=== PATIENT | female | born 1955 | race Caucasian/White ===

== ENCOUNTER 2016-03-15 12:08 | Outpatient (RCR) | payer BC, OTHER ==
[2016-03-15 12:22] LABS: UPCR RATIO 0.04 (0.00-0.14)
[2016-04-26 10:30] LABS: MEAN CORPUSCULAR HEMOGLOBIN 29.3 PG (26.0-34.0); MEAN CORPUSCULAR HGB CONC 33.1 g/dL (31.0-37.0); MEAN CORPUSCULAR VOLUME 89 FL (80-100); MEAN PLATELET VOLUME 9.5 FL (6.0-9.5); PLATELET COUNT 245 10^3uL (150-450); WHITE BLOOD COUNT 5.25 10^3uL (4.0-11.0)
[2016-04-26 10:47] LABS: ALBUMIN 4.2 g/dL (3.4-5.0); ANION GAP 16.5 MEQ/L (3-15); CALCULATED IONIZED CALCIUM 4.3 mg/dL (3.8-4.6); MAGNESIUM* 1.5 mg/dL (1.6-2.3); PHOSPHORUS 3.4 mg/dL (2.4-4.9); TOTAL PROTEIN 7.2 g/dL (6.4-8.5)
[2016-04-26 11:08] LABS: BAND NEUTROPHILS % 0 % (0-6); EOSINOPHILS % 1 % (0-4); LYMPHOCYTES # 1.1 #; MONOCYTES # 0.2 #; MONOCYTES % 4 % (3-11); RBC MORPH NORMAL (NORMAL); SEGMENTED NEUTROPHILS % 74 % (51-67); TOTAL CELLS COUNTED 100
== END 2016-06-13 | disposition home or self-care (01) ==
LOC: LAB 12:08 → EDSTATUS 12:08
PROVIDERS: ATTEND Internal Medicine Hematology & Oncology
DX: C54.8 Malignant neoplasm of overlapping sites of corpus uteri (principal)
CPT/HCPCS: 36415; 80053; 82570; 83615; 83735; 84100; 84156; 85007; 85027

== ENCOUNTER → 2016-04-28 | Outpatient (CLI) | payer BC, OTHER ==
[~2016-04-28] MED LIST: BENZ28CR2 TP; HYDR-2013 PO; IBP200T PO; NAPR220T76 PO
--- NOTE | 2016-04-28 09:34 | Diagnostic Imaging Report ---
PROCEDURE: CT chest pelvis with and abdomen with and without contrast. TECHNIQUE: Multiple contiguous axial images were obtained through the chest, abdomen and pelvis after uneventful bolus administration of intravenous contrast. Precontrast acquisitions were acquired through the abdomen. INDICATION: Uterine cancer surveillance. COMPARISON: 11/12/2015 and 05/28/2015. CT CHEST FINDINGS: The flat 9 mm nodule along the mid right hemidiaphragm is unchanged. There is a new triangular subpleural 5 mm nodule in the posterior aspect of the superior segment of the left lower lobe (image 21, series 5) which has the configuration which would favor atelectasis. No additional pulmonary nodule, mass or consolidation. No endoluminal lesion within the trachea or central bronchi. No pleural effusion, pneumothorax or pleural nodularity. The visualized thyroid demonstrates stable subcentimeter hypodense nodule in the inferior right thyroid lobe. No supraclavicular or axillary lymphadenopathy. Stable left subclavian Port-A-Cath. No intrathoracic lymphadenopathy. No osseous lesion in the thorax which would suggest skeletal metastases. IMPRESSION: 1. New subpleural triangular nodular opacity in the superior segment of the left lower lobe favors subsegmental atelectasis. Attention on followup imaging is recommended. 2. Flat 9 mm nodule along the right hemidiaphragm is unchanged and likely represents focal atelectasis or scar. 3. No intrathoracic lymphadenopathy. CT ABDOMEN AND PELVIS FINDINGS: Precontrast imaging of the abdomen demonstrates no renal or ureteral calculi. Postcontrast imaging demonstrates no peritoneal nodularity or free air. There is trace free pelvic fluid which is similar to prior examination. Status post hysterectomy. No soft tissue nodularity in the surgical bed to suggest local recurrence. No abdominal or pelvic lymphadenopathy. Subcentimeter left external iliac lymph node is unchanged. Subcentimeter upper periaortic lymph nodes are also unchanged. Liver, gallbladder and spleen enhance normally without evidence of metastatic disease. The adrenals and kidneys are stable. There is a subcentimeter hypodensity in the interpolar region of the right kidney which favors a simple cyst. No bowel obstruction. Appendix is not seen and may be surgically absent. Normal caliber abdominal aorta with scattered atherosclerotic disease. No concerning osseous lesions in the abdomen or pelvis to suggest skeletal metastases. Degenerative facet disease in the lower lumbar spine. IMPRESSION: 1. Stable abdomen and pelvis without evidence of local recurrence. 2. Left external iliac chain borderline enlarged lymph node is stable from most recent exam but has decreased in size since examination of 03/20/2014. Dictated by: Dictated on workstation # [id number]
== END ==
LOC: RAD 07:58
PROVIDERS: ATTEND Internal Medicine Hematology & Oncology
DX: C54.8 Malignant neoplasm of overlapping sites of corpus uteri (principal)
CPT/HCPCS: 71260; 74178; Q9967

== ENCOUNTER → 2016-06-23 | Outpatient (CLI) | payer OTHER | LOC: RAD 12:29 | PROVIDERS: ATTEND Internal Medicine Hematology & Oncology | DX: C54.8 Malignant neoplasm of overlapping sites of corpus uteri (principal) | CPT/HCPCS: 74178; Q9967 ==

== ENCOUNTER → 2016-06-23 | Outpatient (REF) | payer OTHER ==
[2016-06-23 11:52] LABS: ALBUMIN 4.1 g/dL (3.4-5.0); CALCULATED IONIZED CALCIUM 3.8 mg/dL (3.8-4.6); TOTAL PROTEIN 7.9 g/dL (6.4-8.5)
== END ==
LOC: LAB 11:14
PROVIDERS: ATTEND Internal Medicine Hematology & Oncology
DX: C54.8 Malignant neoplasm of overlapping sites of corpus uteri (principal)
CPT/HCPCS: 80053

== ENCOUNTER → 2016-07-05 | Outpatient (CLI) | payer OTHER | LOC: LAB 13:42 | PROVIDERS: ATTEND Internal Medicine Hematology & Oncology | DX: C54.8 Malignant neoplasm of overlapping sites of corpus uteri (principal) | CPT/HCPCS: 82570; 84156 ==

== ENCOUNTER → 2016-07-27 | Outpatient (CLI) | payer OTHER ==
[2016-07-27 16:05] LABS: MEAN CORPUSCULAR HEMOGLOBIN 29.3 PG (26.0-34.0); MEAN CORPUSCULAR HGB CONC 32.8 g/dL (31.0-37.0); MEAN CORPUSCULAR VOLUME 89 FL (80-100); MEAN PLATELET VOLUME 9.5 FL (6.0-9.5); PLATELET COUNT 253 10^3uL (150-450); WHITE BLOOD COUNT 5.34 10^3uL (4.0-11.0)
[2016-07-27 16:13] LABS: BAND NEUTROPHILS % 0 % (0-6); EOSINOPHILS % 3 % (0-4); LYMPHOCYTES # 1.4 #; MONOCYTES # 0.3 #; MONOCYTES % 5 % (3-11); SEGMENTED NEUTROPHILS % 66 % (51-67); TOTAL CELLS COUNTED 100
[2016-07-27 16:14] LABS: RBC MORPH NORMAL (NORMAL)
[2016-07-27 16:18] LABS: ALBUMIN 4.2 g/dL (3.4-5.0); ANION GAP 17.4 MEQ/L (3-15); CALCULATED IONIZED CALCIUM 3.8 mg/dL (3.8-4.6); MAGNESIUM* 1.8 mg/dL (1.6-2.3); PHOSPHORUS 2.9 mg/dL (2.4-4.9); TOTAL PROTEIN 7.9 g/dL (6.4-8.5)
== END ==
LOC: LAB 15:51
PROVIDERS: ATTEND Internal Medicine Hematology & Oncology
DX: C54.8 Malignant neoplasm of overlapping sites of corpus uteri (principal)
CPT/HCPCS: 36415; 80053; 83615; 83735; 84100; 85007; 85027

== ENCOUNTER 2016-07-30 10:55 | Emergency (ER) | payer OTHER ==
[~2016-07-30] VITALS: Ht 160 cm; Wt 79.4 kg
--- OUTSIDE RECORDS SUMMARY | 2016-07-30 11:01 | XMS REPORT | Continuity of Care Document ---
Author Author [facility] Organization [facility] Address Unknown Phone Unavailable Allergies Active Description Code Type Severity Reaction Onset Reported/Identified Relationship to Patient Clinical Status Yes No Allergy Information Availab Drug Allergy 07/06/2012 Yes No Allergy Information Availab Drug Allergy N/A N/A 07/06/2012 Yes adhesive [id number] Drug Allergy Unknown N/A 04/18/2014 Yes TAPE TAPE Unknown N/A 04/18/2014 Medications Problems Date Dx Coded Attending Type Code Diagnosis Diagnosed By 11/27/2011 Ot 625.9 FEM GENITAL SYMPTOMS NOS 03/21/2012 Ot 844.9 SPRAIN OF KNEE LEG NOS 03/21/2012 Ot E928.9 ACCIDENT NOS 07/06/2012 Christophe Max MD Final 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 07/06/2012 Christophe Max MD Final 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 07/06/2012 Christophe Max MD Final 278.00 OBESITY NOS 07/06/2012 Christophe Max MD Final V10.3 HX BREAST CA 07/06/2012 Christophe Max MD Final V85.35 BMI 35.0-35.9 ADULT 09/07/2012 Ot 182.0 MALIG WENDY CORPUS UTERI 09/07/2012 Ot V10.3 HX OF BREAST MALIGNANCY 11/27/2012 PRISCILLA DAO MD Ot 285.9 ANEMIA NOS 01/09/2013 PRISCILLA DAO MD Ot 285.9 ANEMIA NOS 02/06/2013 Ot 182.0 MALIG WENDY CORPUS UTERI 05/09/2013 Lance Ulloa MD Final 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 05/09/2013 Lance Ulloa MD Final V10.3 HX BREAST CA 05/09/2013 Lance Ulloa MD Final V15.3 HX IRRADIATION 05/09/2013 Lance Ulloa MD Final V87.41 HX ANTINEOPLASTIC CHEMO 07/09/2013 PAGE MD, PRISCILLA J Ot 182.0 MALIG WENDY CORPUS UTERI 03/18/2014 Ot V10.3 03/18/2014 Ot V10.42 03/18/2014 Ot 182.0 03/18/2014 Ot 182.0 03/18/2014 Ot 182.0 03/18/2014 Ot 788.1 03/18/2014 Ot 182.0 03/18/2014 Ot 182.0 03/18/2014 Ot 182.0 03/18/2014 Ot 182.0 03/18/2014 Ot 182.0 03/18/2014 PRISCILLA DAO MD Ot 786.50 03/18/2014 LAKSHMI PINO Ot 179 03/18/2014 PRISCILLA DAO MD Ot 182.0 03/18/2014 PRISCILLA DAO MD Ot 785.6 03/18/2014 PRISCILLA DAO MD Ot 179 03/18/2014 PRISCILLA DAO MD Ot 182.0 03/18/2014 PRISCILLA DAO MD Ot 182.0 03/18/2014 PRISCILLA DAO MD Ot 182.0 03/18/2014 PRISCILLA DAO MD Ot 182.0 03/18/2014 PRISCILLA DAO MD Ot 182.0 03/18/2014 JAISON RIVERA MD Ot 288.00 NEUTROPENIA, UNSPECIFIED 03/18/2014 JAISON RIVERA MD Ot 780.79 OTH MALAISE FATIGUE 03/18/2014 JAISON RIVERA MD Ot V58.69 OTH MED,LT,CURRENT USE 03/19/2014 Ot V10.3 03/19/2014 Ot V10.42 03/19/2014 Ot 182.0 03/19/2014 Ot 182.0 03/19/2014 Ot 182.0 03/19/2014 Ot 788.1 03/19/2014 Ot 182.0 03/19/2014 Ot 182.0 03/19/2014 Ot 182.0 03/19/2014 Ot 182.0 03/19/2014 Ot 182.0 03/19/2014 PRISCILLA DAO MD Ot 786.50 03/19/2014 LAKSHMI PINO Ot 179 03/19/2014 PRISCILLA DAO MD Ot 182.0 03/19/2014 PRISCILLA DAO MD Ot 785.6 03/19/2014 PRISCILLA DAO MD Ot 179 03/19/2014 PRISCILLA DAO MD Ot 182.0 03/19/2014 PRISCILLA DAO MD Ot 182.0 03/19/2014 PRISCILLA DAO MD Ot 182.0 03/19/2014 PRISCILLA DAO MD J Ot 182.0 03/19/2014 PRISCILLA DAO MD J Ot 182.0 03/25/2014 PRISCILLA DAO MD Ot 182.0 MALIG WENDY CORPUS UTERI 03/26/2014 Ot V10.3 03/26/2014 Ot V10.42 03/26/2014 Ot 182.0 03/26/2014 Ot 182.0 03/26/2014 Ot 182.0 03/26/2014 Ot 788.1 03/26/2014 Ot 182.0 03/26/2014 Ot 182.0 03/26/2014 Ot 182.0 03/26/2014 Ot 182.0 03/26/2014 Ot 182.0 03/26/2014 PRISCILLA DAO MD Ot 786.50 03/26/2014 LAKSHMI PINO Ot 179 03/26/2014 PRISCILLA DAO MD Ot 182.0 03/26/2014 PRISCILLA DAO MD Ot 785.6 03/26/2014 PRISCILLA DAO MD Ot 179 03/26/2014 PRISCILLA DAO MD Ot 182.0 03/26/2014 PRISCILLA DAO MD Ot 182.0 03/26/2014 PRISCILLA DAO MD Ot 182.0 03/26/2014 PRISCILLA DAO MD Ot 182.0 03/26/2014 PRISCILLA DAO MD Ot 182.0 04/01/2014 PRISCILLA DAO MD Ot 182.0 04/05/2014 PRISCILLA DAO MD Ot 182.0 04/05/2014 Ot V10.3 04/05/2014 Ot V10.42 04/05/2014 Ot 182.0 04/05/2014 Ot 182.0 04/05/2014 Ot 182.0 04/05/2014 Ot 788.1 04/05/2014 Ot 182.0 04/05/2014 Ot 182.0 04/05/2014 Ot 182.0 04/05/2014 Ot 182.0 04/05/2014 Ot 182.0 04/05/2014 PRISCILLA DAO MD Ot 786.50 04/05/2014 LAKSHMI PINO Ot 179 04/05/2014 PRISCILLA DAO MD Ot 182.0 04/05/2014 PRISCILLA DAO MD Ot 785.6 04/05/2014 PRISCILLA DAO MD Ot 179 04/05/2014 PRISCILLA DAO MD Ot 182.0 04/05/2014 PRISCILLA DAO MD Ot 182.0 04/05/2014 PRISCILLA DAO MD J Ot 182.0 04/05/2014 PRISCILLA DAO MD J Ot 182.0 04/05/2014 PRISCILLA DAO MD J Ot 182.0 04/05/2014 PRISCILLA DAO MD Ot 182.0 04/15/2014 PRISCILLA DAO MD J Ot 182.0 04/15/2014 PRISCILLA DAO MD Ot 182.0 04/16/2014 Ot V10.3 04/16/2014 Ot V10.42 04/16/2014 Ot 182.0 04/16/2014 Ot 182.0 04/16/2014 Ot 182.0 04/16/2014 Ot 788.1 04/16/2014 Ot 182.0 04/16/2014 Ot 182.0 04/16/2014 Ot 182.0 04/16/2014 Ot 182.0 04/16/2014 Ot 182.0 04/16/2014 PRISCILLA DAO MD Ot 786.50 04/16/2014 LAKSHMI PINO Ot 179 04/16/2014 PRISCILLA DAO MD Ot 182.0 04/16/2014 PRISCILLA DAO MD Ot 785.6 04/16/2014 PRISCILLA DAO MD Ot 179 04/16/2014 PRISCILLA DAO MD Ot 182.0 04/16/2014 PRISCILLA DAO MD Ot 182.0 04/16/2014 PRISCILLA DAO MD Ot 182.0 04/16/2014 PRISCILLA DAO MD Ot 182.0 04/16/2014 PRISCILLA DAO MD Ot 182.0 04/16/2014 PRISCILLA DAO MD Ot 182.0 04/19/2014 PRISCILLA DAO MD Ot 179 MALIG NEOPL UTERUS NOS 04/19/2014 PRISCILLA DAO MD Ot 285.9 ANEMIA NOS 04/22/2014 PRISCILLA DAO MD Ot 182.0 04/29/2014 PRISCILLA DAO MD Ot 182.0 06/03/2014 PRISCILLA DAO MD Ot 182.0 06/03/2014 PRISCILLA DAO MD Ot 593.9 06/03/2014 PRISCILLA DAO MD Ot 785.6 06/11/2014 PRISCILLA DAO MD Ot 182.0 06/11/2014 PRISCILLA DAO MD Ot 593.9 06/11/2014 PRISCILLA DAO MD Ot 785.6 06/30/2014 PRISCILLA DAO MD Ot 182.0 MALIG WENDY CORPUS UTERI 07/25/2014 PRISCILLA DAO MD Ot 182.0 09/02/2014 PRISCILLA DAO MD Ot 182.0 09/02/2014 PRISCILLA DAO MD Ot 182.0 09/13/2014 PRISCILLA DAO MD Ot 182.0 09/13/2014 PRISCILLA DAO MD Ot 182.0 10/06/2014 PRISCILLA DAO MD Ot 179 MALIG NEOPL UTERUS NOS 10/06/2014 PRISCILLA DAO MD Ot 182.0 MALIG WENDY CORPUS UTERI 10/21/2014 PRISCILLA DAO MD Ot 182.0 10/23/2014 PRISCILLA DAO MD Ot 182.0 10/23/2014 PRISCILLA DAO MD Ot 179 11/05/2014 PRISCILLA DAO MD Ot 179 11/20/2014 PRISCILLA DAO MD Ot 182.0 01/19/2015 PRISCILLA DOA MD Ot 182.0 MALIG WENDY CORPUS UTERI 04/07/2015 Ot V10.3 04/07/2015 Ot V10.42 04/07/2015 Ot 182.0 04/07/2015 Ot 182.0 04/07/2015 Ot 182.0 04/07/2015 Ot 788.1 04/07/2015 Ot 182.0 04/07/2015 Ot 182.0 04/07/2015 Ot 182.0 04/07/2015 Ot 182.0 04/07/2015 Ot 182.0 04/07/2015 PRISCILLA DAO MD Ot 786.50 04/07/2015 LAKSHMI PINO K Ot 179 04/07/2015 PRISCILLA DAO MD Ot 182.0 04/07/2015 PRISCILLA DAO MD Ot 785.6 04/07/2015 PRISCILLA DAO MD Ot 179 04/07/2015 PRISCILLA DAO MD Ot 182.0 04/07/2015 PRISCILLA DAO MD Ot 182.0 04/07/2015 PRISCILLA DAO MD Ot 182.0 04/07/2015 PRISCILLA DAO MD Ot 182.0 04/07/2015 FELIBERTO GRIER, PRISCILLA J Ot 182.0 04/07/2015 PRISCILLA DAO MD Ot 182.0 04/07/2015 PRISCILLA DAO MD Ot 593.9 04/07/2015 PRISCILLA DAO MD Ot 785.6 04/07/2015 PRISCILLA DAO MD Ot 182.0 04/07/2015 PRISCILLA DAO MD Ot 179 04/07/2015 PRISCILLA DAO MD Ot C56.9 04/07/2015 PRISCILLA DAO MD Ot 182.0 04/07/2015 Ot C55 04/07/2015 PRISCILLA DAO MD Ot R06.09 04/07/2015 PRISCILLA DAO MD Ot C55 04/07/2015 PRISCILLA DAO MD Ot R06.09 04/23/2015 Ot V10.3 04/23/2015 Ot V10.42 04/23/2015 Ot 182.0 04/23/2015 Ot 182.0 04/23/2015 Ot 182.0 04/23/2015 Ot 788.1 04/23/2015 Ot 182.0 04/23/2015 Ot 182.0 04/23/2015 Ot 182.0 04/23/2015 Ot 182.0 04/23/2015 Ot 182.0 04/23/2015 PRISCILLA DAO MD Ot 786.50 04/23/2015 LAKSHMI PINO Ot 179 04/23/2015 PRISCILLA DAO MD Ot 182.0 04/23/2015 PRISCILLA DAO MD Ot 785.6 04/23/2015 PRISCILLA DAO MD Ot 179 04/23/2015 PRISCILLA DAO MD Ot 182.0 04/23/2015 PRISCILLA DAO MD Ot 182.0 04/23/2015 PRISCILLA DAO MD Ot 182.0 04/23/2015 PRISCILLA DAO MD Ot 182.0 04/23/2015 PRISCILLA DAO MD Ot 182.0 04/23/2015 PRISCILLA DAO MD Ot 182.0 04/23/2015 PRISCILLA DAO MD Ot 593.9 04/23/2015 PRISCILLA DAO MD Ot 785.6 04/23/2015 PRISCILLA DAO MD Ot 182.0 04/23/2015 FELIBERTO GRIER, PRISCILLA Carranza Ot 179 04/23/2015 PRISCILLA DAO MD J Ot C56.9 04/23/2015 PRISCILLA DAO MD Ot 182.0 04/23/2015 Ot C55 04/23/2015 PRISCILLA DAO MD J Ot R06.09 04/23/2015 PRISCILLA DAO MD Ot C55 04/23/2015 PRISCILLA DAO MD J Ot R06.09 04/23/2015 PRISCILLA DAO MD J Ot C55 04/23/2015 PRISCILLA DAO MD Ot R06.09 04/23/2015 Ot V10.3 04/23/2015 Ot V10.42 04/23/2015 Ot 182.0 04/23/2015 Ot 182.0 04/23/2015 Ot 182.0 04/23/2015 Ot 788.1 04/23/2015 Ot 182.0 04/23/2015 Ot 182.0 04/23/2015 Ot 182.0 04/23/2015 Ot 182.0 04/23/2015 Ot 182.0 04/23/2015 PRISCILLA DAO MD Ot 786.50 04/23/2015 LAKSHMI PINO K Ot 179 04/23/2015 PRISCILLA DAO MD Ot 182.0 04/23/2015 PRISCILLA DAO MD Ot 785.6 04/23/2015 PRISCILLA DAO MD Ot 179 04/23/2015 PRISCILLA DAO MD Ot 182.0 04/23/2015 PRISCILLA DAO MD Ot 182.0 04/23/2015 PRISCILLA DAO MD Ot 182.0 04/23/2015 PRISCILLA DAO MD Ot 182.0 04/23/2015 PRISCILLA DAO MD Ot 182.0 04/23/2015 PRISCILLA DAO MD Ot 182.0 04/23/2015 PRISCILLA DAO MD Ot 593.9 04/23/2015 PRISCILLA DAO MD Ot 785.6 04/23/2015 PRISCILLA DAO MD Ot 182.0 04/23/2015 PRISCILLA DAO MD Ot 179 04/23/2015 PRISCILLA DAO MD Ot C56.9 04/23/2015 FELIBERTO GRIER, PRISCILLA Carranza Ot 182.0 04/23/2015 Ot C55 04/23/2015 FELIBERTO GRIER, PRISCILLA Carranza Ot R06.09 04/23/2015 FELIBERTO GRIER, PRISCILLA Carranza Ot C55 04/23/2015 PRISCILLA DAO MD Ot R06.09 04/23/2015 FELIBERTO GRIER, PRISCILLA Carranza Ot C55 04/23/2015 PRISCILLA DAO MD Ot R06.09 05/07/2015 Ot V10.3 05/07/2015 Ot V10.42 05/07/2015 Ot 182.0 05/07/2015 Ot 182.0 05/07/2015 Ot 182.0 05/07/2015 Ot 788.1 05/07/2015 Ot 182.0 05/07/2015 Ot 182.0 05/07/2015 Ot 182.0 05/07/2015 Ot 182.0 05/07/2015 Ot 182.0 05/07/2015 FELIBERTO GRIER, PRISCILLA Carranza Ot 786.50 05/07/2015 LAKSHMI PINO Ot 179 05/07/2015 FELIBERTO GRIER, PRISCILLA Carranza Ot 182.0 05/07/2015 FELIBERTO GRIER, PRISCILLA Carranza Ot 785.6 05/07/2015 FELIBERTO GRIER, PRISCILLA Carranza Ot 179 05/07/2015 FELIBERTO GRIER, PRISCILLA Carranza Ot 182.0 05/07/2015 FELIBERTO GRIER, PRISCILLA Carranza Ot 182.0 05/07/2015 FELIBERTO GRIER, PRISCILLA Carrazna Ot 182.0 05/07/2015 FELIBERTO GRIER, PRISCILLA Carranza Ot 182.0 05/07/2015 FELIBERTO GRIER, PRISCILLA Carranza Ot 182.0 05/07/2015 FELIBERTO GRIER, PRISCILLA Carranza Ot 182.0 05/07/2015 PRISCILLA DAO MD Ot 593.9 05/07/2015 FELIBERTO GRIER, PRISCILLA Carranza Ot 785.6 05/07/2015 FELIBERTO GRIER, PRISCILLA Carranza Ot 182.0 05/07/2015 FELIBERTO GRIER, PRISCILLA Carranza Ot 179 05/07/2015 FELIBERTO GRIER, PRISCILLA Carranza Ot C56.9 05/07/2015 PRISCILLA DAO MD Ot 182.0 05/07/2015 Ot C55 05/07/2015 PRISCILLA DAO MD Ot R06.09 05/07/2015 PRISCILLA DAO MD Ot C55 05/07/2015 FELIBERTO GRIER, PRISCILLA Carranza Ot R06.09 05/07/2015 FELIBERTO GRIER, PRISCILLA Carranza Ot C55 05/07/2015 FELIBERTO GRIER, PRISCILLA Carranza Ot R06.09 05/08/2015 FELIBERTO GRIER, PRISCILLA Carranza Ot C56.9 05/08/2015 Ot C55 05/08/2015 PRISCILLA DAO MD Ot R06.09 05/08/2015 PRISCILLA DAO MD Ot C55 05/08/2015 PRISCILLA DAO MD J Ot R06.09 05/08/2015 Ot V10.3 05/08/2015 Ot V10.42 05/08/2015 Ot 182.0 05/08/2015 Ot 182.0 05/08/2015 Ot 182.0 05/08/2015 Ot 788.1 05/08/2015 Ot 182.0 05/08/2015 Ot 182.0 05/08/2015 Ot 182.0 05/08/2015 Ot 182.0 05/08/2015 Ot 182.0 05/08/2015 PRISCILLA DAO MD Ot 786.50 05/08/2015 MARTIN LARA, LAKSHMI K Ot 179 05/08/2015 PRISCILLA DAO MD Ot 182.0 05/08/2015 FELIBERTO GRIER, PRISCILLA Carranza Ot 785.6 05/08/2015 FELIBERTO GRIER, PRISCILLA Carranza Ot 179 05/08/2015 FELIBERTO GRIER, PRISCILLA Carranza Ot 182.0 05/08/2015 PRISCILLA DAO MD Ot 182.0 05/08/2015 FELIBERTO GRIER, PRISCILLA Carranza Ot 182.0 05/08/2015 PRISCILLA DAO MD Ot 182.0 05/08/2015 PRISCILLA DAO MD Ot 182.0 05/08/2015 PRISCILLA DAO MD Ot 182.0 05/08/2015 PRISCILLA DAO MD Ot 593.9 05/08/2015 PRISCILLA DAO MD Ot 785.6 05/08/2015 PRISCILLA DAO MD Ot 182.0 05/08/2015 FELIBERTO GRIER, PRISCILLA Carranza Ot 179 05/08/2015 PRISCILLA DAO MD Ot C56.9 05/08/2015 PRISCILLA DAO MD Ot 182.0 05/08/2015 Ot C55 05/08/2015 PRISCILLA DAO MD Ot R06.09 05/08/2015 PRISCILLA DAO MD Ot C55 05/08/2015 FELIBERTO GRIER, PRISCILLA J Ot R06.09 05/08/2015 FELIBERTO GRIER, PRISCILLA Carranza Ot C55 05/08/2015 FELIBERTO GRIER, PRISCILLA J Ot R06.09 05/20/2015 FELIBERTO GRIER, PRISCILLA J Ot C56.9 05/20/2015 Ot C55 05/20/2015 FELIBERTO GRIER, PRISCILLA J Ot R06.09 05/20/2015 FELIBERTO GRIER, PRISCILLA Carranza Ot C55 05/20/2015 FELIBERTO GRIER, PRISCILLA Carranza Ot R06.09 06/18/2015 FELIBERTO GRIER, PRISCILLA J Ot C54.8 07/02/2015 FELIBERTO GRIER, PRISCILLA J Ot C54.8 07/02/2015 FELIBERTO GRIER, PRISCILLA J Ot C54.8 07/02/2015 FELIBERTO GRIER, PRISCILLA Carranza Ot C54.8 07/02/2015 FELIBERTO GRIER, PRISCILLA Carranza Ot C54.8 07/02/2015 FELIBERTO GRIER, PRISCILLA Carranza Ot C55 07/02/2015 FELIBERTO GRIER, PRISCILLA Carranza Ot R06.09 07/02/2015 FELIBERTO GRIER, PRISCILLA Carranza Ot C55 07/02/2015 FELIBERTO GRIER, PRISCILLA Carranza Ot R06.09 07/09/2015 Ot V10.3 07/09/2015 Ot V10.42 07/09/2015 Ot 182.0 07/09/2015 Ot 182.0 07/09/2015 Ot 182.0 07/09/2015 Ot 788.1 07/09/2015 Ot 182.0 07/09/2015 Ot 182.0 07/09/2015 Ot 182.0 07/09/2015 Ot 182.0 07/09/2015 Ot 182.0 07/09/2015 PRISCILLA DAO MD Ot 786.50 07/09/2015 LAKSHMI PINO Ot 179 07/09/2015 FELIBERTO GRIER, PRISCILLA Carranza Ot 182.0 07/09/2015 PRISCILLA DAO MD Ot 785.6 07/09/2015 FELIBERTO GRIER, PRISCILLA Carranza Ot 179 07/09/2015 PRISCILLA DAO MD Ot 182.0 07/09/2015 PRISCILLA DAO MD Ot 182.0 07/09/2015 PRISCILLA DAO MD Ot 182.0 07/09/2015 PRISCILLA DAO MD Ot 182.0 07/09/2015 PRISCILLA DAO MD J Ot 182.0 07/09/2015 PRISCILLA DAO MD J Ot 182.0 07/09/2015 PRISCILLA DAO MD Ot 593.9 07/09/2015 PRISCILLA DAO MD Ot 785.6 07/09/2015 PRISCILLA DAO MD J Ot 182.0 07/09/2015 PRISCILLA DAO MD Ot 179 07/09/2015 PRISCILLA DAO MD Ot C56.9 07/09/2015 PRISCILLA DAO MD J Ot 182.0 07/09/2015 Ot C55 07/09/2015 PRISCILLA DAO MD J Ot R06.09 07/09/2015 PRISCILLA DAO MD Ot C55 07/09/2015 PRISCILLA DAO MD J Ot R06.09 07/09/2015 PRISCILLA DAO MD Ot C55 07/09/2015 PRISCILLA DAO MD Ot R06.09 07/09/2015 PRISCILLA DAO MD Ot C54.8 07/09/2015 PRISCILLA DAO MD Ot C54.8 07/09/2015 PRISCILLA DAO MD Ot C54.8 07/09/2015 PRISCILLA DAO MD Ot C54.8 07/14/2015 PRISCILLA DAO MD Ot C55 07/14/2015 PRISCILLA DAO MD Ot R06.09 07/16/2015 PRISCILLA DAO MD Ot C54.8 07/16/2015 PRISCILLA DAO MD Ot C54.8 07/17/2015 PRISCILLA DAO MD Ot C54.8 07/22/2015 PRISCILLA DAO MD Ot C54.8 09/11/2015 PRISCILLA DAO MD Ot 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 09/30/2015 PRISCILLA DAO MD Ot 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 09/30/2015 PRISCILLA DAO MD Ot J06.9 ACUTE UPPER RESPIRATORY INFECTION, UNSPE 10/08/2015 PRISCILLA DAO MD Ot 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 11/12/2015 PRISCILLA DAO MD Ot 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 11/12/2015 PRISCILLA DAO MD Ot 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 11/12/2015 PRISCILLA DAO MD Ot J06.9 ACUTE UPPER RESPIRATORY INFECTION, UNSPE 11/12/2015 PRISCILLA DAO MD Ot 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 11/12/2015 PRISCILLA DAO MD Ot 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 11/12/2015 PRISCILLA DAO MD Ot J06.9 ACUTE UPPER RESPIRATORY INFECTION, UNSPE 11/12/2015 PRISCILLA DAO MD Ot 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 11/13/2015 PRISCILLA DAO MD Ot 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 11/13/2015 PRISCILLA DAO MD Ot 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 11/17/2015 PRISCILLA DAO MD Ot 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 11/19/2015 PRISCILLA DAO MD Ot 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 11/19/2015 PRISCILLA DAO MD Ot 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 11/19/2015 PRISCILLA DAO MD Ot 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 11/19/2015 PRISCILLA DAO MD Ot 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 11/19/2015 PRICSILLA DAO MD Ot 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 11/19/2015 PRISCILLA DAO MD Ot J06.9 ACUTE UPPER RESPIRATORY INFECTION, UNSPE 11/19/2015 PRISCILLA DAO MD Ot 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 11/25/2015 PRISCILLA DAO MD Ot 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 11/25/2015 PRISCILLA DAO MD Ot J06.9 ACUTE UPPER RESPIRATORY INFECTION, UNSPE 11/25/2015 PRISCILLA DAO MD Ot 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 12/01/2015 Ot V10.3 HX OF BREAST MALIGNANCY 12/01/2015 Ot V10.42 HX-UTERUS MALIGNANCY NEC 12/01/2015 Ot 182.0 MALIG WENDY CORPUS UTERI 12/01/2015 Ot 182.0 MALIG WENDY CORPUS UTERI 12/01/2015 Ot 182.0 MALIG WENDY CORPUS UTERI 12/01/2015 Ot 788.1 DYSURIA 12/01/2015 Ot 182.0 MALIG WENDY CORPUS UTERI 12/01/2015 Ot 182.0 MALIG WENDY CORPUS UTERI 12/01/2015 Ot 182.0 MALIG WENDY CORPUS UTERI 12/01/2015 Ot 182.0 MALIG WENDY CORPUS UTERI 12/01/2015 Ot 182.0 MALIG WENDY CORPUS UTERI 12/01/2015 PRISCILLA DAO MD Ot 786.50 CHEST PAIN NOS 12/01/2015 MARTIN LARA, LAKSHMI K Ot 179 MALIG NEOPL UTERUS NOS 12/01/2015 PRISCILLA DAO MD Ot 182.0 MALIG WENDY CORPUS UTERI 12/01/2015 PRISCILLA DAO MD Ot 785.6 ENLARGEMENT LYMPH NODES 12/01/2015 PRISCILLA DAO MD Ot 179 MALIG NEOPL UTERUS NOS 12/01/2015 PRISCILLA DAO MD Ot 182.0 MALIG WENDY CORPUS UTERI 12/01/2015 PRISCILLA DAO MD Ot 182.0 MALIG WENDY CORPUS UTERI 12/01/2015 PRISCILLA DAO MD Ot 182.0 MALIG WENDY CORPUS UTERI 12/01/2015 PRISCILLA DAO MD Ot 182.0 MALIG WENDY CORPUS UTERI 12/01/2015 PRISCILLA DAO MD Ot 182.0 MALIG WENDY CORPUS UTERI 12/01/2015 PRISCILLA DAO MD Ot 182.0 MALIG WENDY CORPUS UTERI 12/01/2015 PRISCILLA DAO MD Ot 593.9 RENAL URETERAL DIS NOS 12/01/2015 PRISCILLA DAO MD Ot 785.6 ENLARGEMENT LYMPH NODES 12/01/2015 PRISCILLA DAO MD Ot 182.0 MALIG WENDY CORPUS UTERI 12/01/2015 PRISCILLA DAO MD Ot 179 MALIG NEOPL UTERUS NOS 12/01/2015 PRISCILLA DAO MD Ot 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 12/01/2015 PRISCILLA DAO MD Ot 182.0 12/01/2015 Ot C55 MALIGNANT NEOPLASM OF UTERUS, PART UNSPE 12/01/2015 PRISCILLA DAO MD Ot R06.09 OTHER FORMS OF DYSPNEA 12/01/2015 PRISCILLA DAO MD, Ot C55 MALIGNANT NEOPLASM OF UTERUS, PART UNSPE 12/01/2015 PRISCILLA DAO MD Ot R06.09 OTHER FORMS OF DYSPNEA 12/01/2015 PRISCILLA DAO MD Ot C55 MALIGNANT NEOPLASM OF UTERUS, PART UNSPE 12/01/2015 PRISCILLA DAO MD Ot R06.09 OTHER FORMS OF DYSPNEA 12/01/2015 PAGE MD, PRISCILLA J Ot 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 12/01/2015 PRISCILLA DOA MD Ot 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 12/01/2015 PRISCILLA DAO MD Ot 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 12/01/2015 PRISCILLA DAO MD Ot 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 12/01/2015 PRISCILLA DAO MD Ot 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 12/01/2015 PRISCILLA DAO MD Ot J06.9 ACUTE UPPER RESPIRATORY INFECTION, UNSPE 12/01/2015 PRISCILLA DAO MD Ot 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 12/01/2015 PRISCILLA DAO MD Ot 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 12/01/2015 PRISCILLA DAO MD Ot 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 12/01/2015 PRISCILLA DAO MD Ot 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 12/01/2015 PRISCILLA DAO MD Ot J06.9 ACUTE UPPER RESPIRATORY INFECTION, UNSPE 12/01/2015 PRISCILLA DAO MD Ot 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 12/01/2015 PRISCILLA DAO MD Ot 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 12/01/2015 PRISCILLA DAO MD Ot 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 12/05/2015 PRISCILLA DAO MD Ot 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 12/11/2015 PRISCILLA DAO MD Ot 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 01/14/2016 KELLI GRIER, REY M Ot R30.0 DYSURIA 01/21/2016 REY PEREIRA MD M Ot R30.0 DYSURIA 01/24/2016 REY PEREIRA MD M Ot R30.0 DYSURIA 02/05/2016 PRISCILLA DAO MD Ot 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 02/05/2016 PRISCILLA DAO MD Ot 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 02/11/2016 PRISCILLA DAO MD Ot 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 02/25/2016 PRISCILLA DAO MD Ot 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 03/19/2016 PRISCILLA DAO MD Ot 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 03/19/2016 PRISCILLA DAO MD Ot 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 03/19/2016 PRISCILLA DAO MD Ot 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 04/01/2016 KELLI GRIER, REY Justin Ot R30.0 DYSURIA 04/09/2016 PRISCILLA DAO MD Ot 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 04/11/2016 PRISCILLA DAO MD Ot 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 04/14/2016 PRISCILLA DAO MD Ot 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 04/16/2016 PRISCILLA DAO MD Ot 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 04/16/2016 PRISCILLA DAO MD Ot 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 04/16/2016 PRISCILLA DAO MD Ot J06.9 ACUTE UPPER RESPIRATORY INFECTION, UNSPE 04/16/2016 PRISCILLA DAO MD Ot 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 05/05/2016 PRISCILLA DAO MD Ot 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 05/18/2016 PRISCILLA DAO MD Ot 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 05/18/2016 PRISCILLA DAO MD Ot 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 05/18/2016 PRISCILLA DAO MD Ot 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 05/18/2016 PRISCILLA DAO MD Ot 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 05/19/2016 PRISCILLA DAO MD Ot 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 05/19/2016 PRISCILLA DAO MD Ot 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 06/13/2016 PRISCILLA DAO MD Ot 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 06/17/2016 PRISCILLA DAO MD Ot 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 06/19/2016 PRISCILLA DAO MD Ot 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 06/23/2016 PRISCILLA DAO MD Ot 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 06/24/2016 Ot V10.3 HX OF BREAST MALIGNANCY 06/24/2016 Ot V10.42 HX-UTERUS MALIGNANCY NEC 06/24/2016 Ot 182.0 MALIG WENDY CORPUS UTERI 06/24/2016 Ot 182.0 MALIG WENDY CORPUS UTERI 06/24/2016 Ot 182.0 MALIG WENDY CORPUS UTERI 06/24/2016 Ot 788.1 DYSURIA 06/24/2016 Ot 182.0 MALIG WENDY CORPUS UTERI 06/24/2016 Ot 182.0 MALIG WENDY CORPUS UTERI 06/24/2016 Ot 182.0 MALIG WENDY CORPUS UTERI 06/24/2016 Ot 182.0 MALIG WENDY CORPUS UTERI 06/24/2016 Ot 182.0 MALIG WENDY CORPUS UTERI 06/24/2016 PRISCILLA DAO MD Ot 786.50 CHEST PAIN NOS 06/24/2016 MARTIN LARA, LAKSHMI K Ot 179 MALIG NEOPL UTERUS NOS 06/24/2016 PRISCILLA DAO MD Ot 182.0 MALIG WENDY CORPUS UTERI 06/24/2016 PRISCILLA DAO MD Ot 785.6 ENLARGEMENT LYMPH NODES 06/24/2016 PRISCILLA DAO MD Ot 179 MALIG NEOPL UTERUS NOS 06/24/2016 PRISCILLA DAO MD Ot 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.0 MALIG WENDY CORPUS UTERI 06/24/2016 PRISCILLA DAO MD Ot 182.0 MALIG WENDY CORPUS UTERI 06/24/2016 PRISCILLA DAO MD Ot 182.0 MALIG WENDY CORPUS UTERI 06/24/2016 PRISCILLA DAO MD Ot 182.0 MALIG WENDY CORPUS UTERI 06/24/2016 PRISCILLA DAO MD Ot 182.0 MALIG WENDY CORPUS UTERI 06/24/2016 PRISCILLA DAO MD Ot 182.0 MALIG WENDY CORPUS UTERI 06/24/2016 PRISCILLA DAO MD Ot 593.9 RENAL URETERAL DIS NOS 06/24/2016 PRISCILLA DAO MD Ot 785.6 ENLARGEMENT LYMPH NODES 06/24/2016 PRISCILLA DAO MD Ot 182.0 MALIG WENDY CORPUS UTERI 06/24/2016 PRISCILLA DAO MD Ot 179 MALIG NEOPL UTERUS NOS 06/24/2016 PRISCILLA DAO MD Ot 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 06/24/2016 PRISCILLA DAO MD Ot 182.0 06/24/2016 Ot C55 MALIGNANT NEOPLASM OF UTERUS, PART UNSPE 06/24/2016 PRISCILLA DAO MD Ot R06.09 OTHER FORMS OF DYSPNEA 06/24/2016 PRISCILLA DAO MD Ot C55 MALIGNANT NEOPLASM OF UTERUS, PART UNSPE 06/24/2016 PRISCILLA DAO MD Ot R06.09 OTHER FORMS OF DYSPNEA 06/24/2016 PRISCILLA DAO MD Ot C55 MALIGNANT NEOPLASM OF UTERUS, PART UNSPE 06/24/2016 PRISCILLA DAO MD Ot R06.09 OTHER FORMS OF DYSPNEA 06/24/2016 PRISCILLA DAO MD Ot 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 06/24/2016 PRISCILLA DAO MD Ot 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 06/24/2016 PRISCILLA DAO MD Ot 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 06/24/2016 PRISCILLA DAO MD Ot 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 06/24/2016 PRISCILLA DAO MD Ot 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 06/24/2016 PRISCILLA DAO MD Ot J06.9 ACUTE UPPER RESPIRATORY INFECTION, UNSPE 06/24/2016 PRISCILLA DAO MD Ot 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 06/24/2016 PRISCILLA DAO MD Ot 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 06/24/2016 PRISCILLA DAO MD Ot 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 06/24/2016 PRISCILLA DAO MD Ot 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 06/24/2016 PRISCILLA DAO MD Ot J06.9 ACUTE UPPER RESPIRATORY INFECTION, UNSPE 06/24/2016 PRISCILLA DAO MD Ot 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 06/24/2016 PRISCILLA DAO MD Ot 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 06/24/2016 PRISCILLA DAO MD Ot 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 06/24/2016 KELLI GRIER, REY Justin Ot R30.0 DYSURIA 06/24/2016 PRISCILLA DAO MD Ot 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 06/24/2016 PRISCILLA DAO MD Ot 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 06/24/2016 PRISCILLA DAO MD Ot 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 06/24/2016 PRISCILLA DAO MD Ot 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 06/25/2016 PRISCILLA DAO MD Ot 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 06/29/2016 PRISCILLA DAO MD Ot 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 07/08/2016 PRISCILLA DAO MD, Ot 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 Procedures Code [place] [id number] LAPAROSCOPY, LYMPHADENECTOMY Christophe Max MD 07/06/2012 71049 TLH W/T/O 250 G OR LESS Christophe Max MD 07/06/2012 86.07 INSERTION OF TOTALLY IMPLANTABLE VASC AC 09/07/2012 99.04 PACKED CELL TRANSFUSION 04/19/2014 Results Test Result Range BASIC METABOLIC PANEL* - 11/26/15 10:43 Sodium measurement 138 70-110 Carbon dioxide measurement 24 22-29 Serum or plasma anion gap 18.7 3-15 BLOOD UREA NITROGEN 19 7-18 CREATININE SERUM 1.14 0.6-1.2 Brucella species antibody panel (IgG, IgM) 17 10-20 Estimated glomerular filtration rate (GFR) 58.4 Estimated glomerular filtration rate (GFR) non- 48.3 CALCIUM 9.6 8.8-10.8 UA (urinalysis) - 01/08/16 09:18 COLLECTION METHOD CLEAN CATCH Color of urine by auto Yellow Urine appearance determination Cloudy Urine pH measurement by automated test strip 6.0 5.0 - 8.0 Specific gravity of urine by automated test strip 1.025 1.005-1.030 PROTEIN, URINE 1+ Urine glucose detection by automated test strip Negative Negative Urine erythrocytes count by automated test strip (number/volume) Trace-intact Negative Urine ketones detection by automated test strip Negative Negative NITRITE,URINE Positive Negative Urine total bilirubin detection by automated test strip Negative Negative Urine urobilinogen measurement by automated test strip (mass/volume) 0.2 0.2-1.0 Urine leukocyte esterase detection by dipstick 1+ Negative Microscopic examination of urine - 01/08/16 09:18 Urine volume measurement < Urine erythrocytes detection by automated method 2-5 Automated urine sediment leukocyte count by microscopy (number/high power field ) Bacteria 1+ Negative SQUAMOUS EPITHELIAL CELL,UR 5-10 MUCOUS,URINE 1+ Urine culture - 01/08/16 09:18 Urine culture CORTES FOR RESULTS: * - NEW RESULT - RESULT WAS MODIFIED AFTER FINAL STATUS SET Comprehensive metabolic panel - 02/02/16 13:01 Sodium measurement 109 70-110 Carbon dioxide measurement 28 22-29 Serum or plasma anion gap 16.9 3-15 BLOOD UREA NITROGEN 18 7-18 CREATININE SERUM 1.20 0.6-1.2 Brucella species antibody panel (IgG, IgM) 15 10-20 Estimated glomerular filtration rate (GFR) 55.1 Estimated glomerular filtration rate (GFR) non- 45.5 OSMOLALITY,CALCULATED 279 280-300 CALCIUM 10.1 8.8-10.8 Calculated ionized calcium measurement 4.2 3.8-4.6 BILIRUBIN,TOTAL 1.1 0.1-1.0 Serum or plasma alkaline phosphatase measurement 126 38-126 ASPARTATE AMINO TRANSFERASE 32 15-37 ALANINE AMINOTRANSFERASE 41 30-65 Serum or plasma total protein measurement 8.0 6.4-8.5 Serum or plasma albumin measurement 4.3 3.4-5.0 Serum or plasma albumin/globulin mass ratio 1.162 1.1-1.8 Phosphorus measurement - 02/02/16 13:01 Phosphorus measurement 3.8 2.4-4.9 Magnesium measurement - 02/02/16 13:01 Magnesium measurement 1.6 1.6-2.3 Lactate dehydrogenase (LDH) measurement - 02/02/16 13:01 Sodium measurement 536 313-618 CBC AND MANUAL DIFF - 02/02/16 13:01 Blood automated leukocyte count 4.22 4.0 -11.0 Erythrocytes 4.49 4.00-5.00 12.0-16.0;g/dL 13.6 12.0-15.5 Hematocrit 40.40 35.00-45.00 Automated erythrocyte mean corpuscular volume 90 80-100 Mean corpuscular hemoglobin (MCH) determination 30.3 26.0-34.0 Automated erythrocyte mean corpuscular hemoglobin concentration measurement ( mass/volume) 33.7 31.0-37.0 Erythrocyte distribution width 14.2 11.8 -15.6 Automated blood platelet count 213 150- 450 Automated blood platelet mean volume measurement 9.1 6.0-9.5 Total cell count 100 Blood segmented neutrophils percentage 66 51-67 Blood band neutrophil count as percentage of total leukocytes 0 0-6 LYMPHOCYTES % 27 20-46 Automated monocyte percentage 5 3-11 Eosinophil count auto 2 0-4 Basophils 0 0-2 NEUTROPHILS(SEG) 2.8 NEUTROPHILS # BANDS 0.0 Blood lymphocytes manual count (number/volume) 1.1 Automated blood monocyte count 0.2 Blood absolute eosinophil count 0.1 Basophils 0.0 Erythrocyte morphology assessment NORMAL NORMAL Urine protein/creatinine ratio - 02/17/16 16:26 UPROTEIN 5.0 0-11.90 CREATININE,URINE RANDOM 318.0 30-125 Urine protein/creatinine ratio 0.02 0.00 -0.14 Urine protein/creatinine ratio - 03/15/16 11:59 UPROTEIN 12.0 0-11.90 CREATININE,URINE RANDOM 278.0 30-125 Urine protein/creatinine ratio 0.04 0.00 -0.14 Urine protein/creatinine ratio - 04/13/16 13:24 UPROTEIN 24.0 0-11.90 CREATININE,URINE RANDOM 124.0 30-125 Urine protein/creatinine ratio 0.19 0.00 -0.14 Comprehensive metabolic panel - 04/26/16 10:15 Sodium measurement 133 70-110 Carbon dioxide measurement 26 22-29 Serum or plasma anion gap 16.5 3-15 BLOOD UREA NITROGEN 22 7-18 CREATININE SERUM 1.21 0.6-1.2 Brucella species antibody panel (IgG, IgM) 18 10-20 Estimated glomerular filtration rate (GFR) 54.6 Estimated glomerular filtration rate (GFR) non- 45.1 OSMOLALITY,CALCULATED 280 280-300 CALCIUM 9.9 8.8-10.8 Calculated ionized calcium measurement 4.3 3.8-4.6 BILIRUBIN,TOTAL 0.9 0.1-1.0 Serum or plasma alkaline phosphatase measurement 136 38-126 ASPARTATE AMINO TRANSFERASE 30 15-37 ALANINE AMINOTRANSFERASE 43 30-65 Serum or plasma total protein measurement 7.2 6.4-8.5 Serum or plasma albumin measurement 4.2 3.4-5.0 Serum or plasma albumin/globulin mass ratio 1.400 1.1-1.8 Phosphorus measurement - 04/26/16 10:15 Phosphorus measurement 3.4 2.4-4.9 Magnesium measurement - 04/26/16 10:15 Magnesium measurement 1.5 1.6-2.3 Lactate dehydrogenase (LDH) measurement - 04/26/16 10:15 Sodium measurement 490 313-618 CBC AND MANUAL DIFF - 04/26/16 10:15 Blood automated leukocyte count 5.25 4.0 -11.0 Erythrocytes 4.61 4.00-5.00 12.0-16.0;g/dL 13.5 12.0-15.5 Hematocrit 40.80 35.00-45.00 Automated erythrocyte mean corpuscular volume 89 80-100 Mean corpuscular hemoglobin (MCH) determination 29.3 26.0-34.0 Automated erythrocyte mean corpuscular hemoglobin concentration measurement ( mass/volume) 33.1 31.0-37.0 Erythrocyte distribution width 14.4 11.8 -15.6 Automated blood platelet count 245 150- 450 Automated blood platelet mean volume measurement 9.5 6.0-9.5 Total cell count 100 Blood segmented neutrophils percentage 74 51-67 Blood band neutrophil count as percentage of total leukocytes 0 0-6 LYMPHOCYTES % 21 20-46 Automated monocyte percentage 4 3-11 Eosinophil count auto 1 0-4 Basophils 0 0-2 NEUTROPHILS(SEG) 3.9 NEUTROPHILS # BANDS 0.0 Blood lymphocytes manual count (number/volume) 1.1 Automated blood monocyte count 0.2 Blood absolute eosinophil count 0.1 Basophils 0.0 Erythrocyte morphology assessment NORMAL NORMAL Urine protein/creatinine ratio - 05/11/16 13:15 Urine protein/creatinine ratio 0.00- 0.14 Urine protein/creatinine ratio - 06/07/16 11:05 Urine protein/creatinine ratio 0.00- 0.14 Comprehensive metabolic panel - 06/23/16 11:05 Sodium measurement 96 70-110 CARBON DIOXIDE 27 22-29 Serum or plasma anion gap 13.0 3-15 BLOOD UREA NITROGEN 27 7-18 CREATININE SERUM 1.26 0.6-1.2 Brucella species antibody panel (IgG, IgM) 21 10-20 Estimated glomerular filtration rate (GFR) 52.1 Estimated glomerular filtration rate (GFR) non- 43.0 OSMOLALITY,CALCULATED 282 280-300 CALCIUM 9.3 8.8-10.8 Calculated ionized calcium measurement 3.8 3.8-4.6 BILIRUBIN,TOTAL 0.8 0.1-1.0 Serum or plasma alkaline phosphatase measurement 125 38-126 ASPARTATE AMINO TRANSFERASE 24 15-37 ALANINE AMINOTRANSFERASE 38 30-65 Serum or plasma total protein measurement 7.9 6.4-8.5 Serum or plasma albumin measurement 4.1 3.4-5.0 Serum or plasma albumin/globulin mass ratio 1.078 1.1-1.8 Urine protein/creatinine ratio - 07/05/16 13:47 Urine protein/creatinine ratio 0.00- 0.14 CBC AND MANUAL DIFF - 07/27/16 15:58 Blood automated leukocyte count 5.34 4.0 -11.0 Erythrocytes 4.16 4.00-5.00 12.0-16.0;g/dL 12.2 12.0-15.5 Hematocrit 37.20 35.00-45.00 Automated erythrocyte mean corpuscular volume 89 80-100 Mean corpuscular hemoglobin (MCH) determination 29.3 26.0-34.0 Automated erythrocyte mean corpuscular hemoglobin concentration measurement ( mass/volume) 32.8 31.0-37.0 Erythrocyte distribution width 14.9 11.8 -15.6 Automated blood platelet count 253 150- 450 Automated blood platelet mean volume measurement 9.5 6.0-9.5 Total cell count 100 Blood segmented neutrophils percentage 66 51-67 Blood band neutrophil count as percentage of total leukocytes 0 0-6 LYMPHOCYTES % 26 20-46 Automated monocyte percentage 5 3-11 Eosinophil count auto 3 0-4 Basophils 0 0-2 NEUTROPHILS(SEG) 3.5 NEUTROPHILS # BANDS 0.0 Blood lymphocytes manual count (number/volume) 1.4 Automated blood monocyte count 0.3 Blood absolute eosinophil count 0.2 Basophils 0.0 Erythrocyte morphology assessment NORMAL NORMAL Comprehensive metabolic panel - 07/27/16 15:58 Sodium measurement 119 70-110 CARBON DIOXIDE 25 22-29 Serum or plasma anion gap 17.4 3-15 BLOOD UREA NITROGEN 26 7-18 CREATININE SERUM 1.49 0.6-1.2 Brucella species antibody panel (IgG, IgM) 17 10-20 Estimated glomerular filtration rate (GFR) 42.9 Estimated glomerular filtration rate (GFR) non- 35.5 OSMOLALITY,CALCULATED 284 280-300 CALCIUM 9.3 8.8-10.8 Calculated ionized calcium measurement 3.8 3.8-4.6 BILIRUBIN,TOTAL 0.8 0.1-1.0 Serum or plasma alkaline phosphatase measurement 123 38-126 ASPARTATE AMINO TRANSFERASE 23 15-37 ALANINE AMINOTRANSFERASE 35 30-65 Serum or plasma total protein measurement 7.9 6.4-8.5 Serum or plasma albumin measurement 4.2 3.4-5.0 Serum or plasma albumin/globulin mass ratio 1.135 1.1-1.8 Phosphorus measurement - 07/27/16 15:58 Phosphorus measurement 2.9 2.4-4.9 Magnesium measurement - 07/27/16 15:58 Magnesium measurement 1.8 1.6-2.3 Lactate dehydrogenase (LDH) measurement - 07/27/16 15:58 Sodium measurement 474 313-618 Encounters ACCT No. Visit Date/Time Discharge Status Pt. Type Provider Facility Loc./Unit Complaint [id number] 05/09/2013 12:00:00 2013 23:59:59 CLS Outpatient Lance Ulloa MD [facility] [id number] 03/12/2013 08:50:00 2012 23:59:59 CLS Outpatient Lance Ulloa MD [facility] [id number] 07/06/2012 09:59:00 2012 14:49:00 DIS Outpatient Winter GRIER, Christophe Gu [facility] on [address]
--- OUTSIDE RECORDS SUMMARY | 2016-07-30 11:04 | XMS REPORT | Continuity of Care Document ---
Author Author [facility] Organization [facility] Address Unknown Phone Unavailable Allergies Active Description Code Type Severity Reaction Onset Reported/Identified Relationship to Patient Clinical Status Yes No Allergy Information Availab Drug Allergy 07/06/2012 Yes No Allergy Information Availab Drug Allergy N/A N/A 07/06/2012 Yes adhesive [id number] Drug Allergy Unknown N/A 04/18/2014 Yes TAPE [...] DAO MD Ot 285.9 ANEMIA NOS 04/22/2014 PRICSILLA DAO MD Ot 182.0 04/29/2014 PRISCILLA DAO [...] 09/13/2014 PRISCILLA DAO MD Ot 182.0 09/13/2014 PRSICILLA DAO MD Ot 182.0 10/06/2014 PRISCILLA DAO MD Ot 179 MALIG NEOPL UTERUS NOS 10/06/2014 PRISCILLA DAO MD Ot 182.0 MALIG WENDY CORPUS UTERI 10/21/2014 PRISCILLA DAO MD Ot 182.0 10/23/2014 PRISCILLA DAO MD Ot 182.0 10/23/2014 PRISCILLA DAO MD Ot 179 11/05/2014 PRISCILLA DAO MD Ot 179 11/20/2014 PRISCILLA DAO MD Ot 182.0 01/19/2015 PRISCILLA DAO MD Ot 182.0 MALIG WENDY [...] FELIBERTO GRIER, PRISCILLA Carranza Ot 182.0 05/07/2015 FLEIBERTO GRIER, PRISCILLA Carranza Ot 182.0 05/07/2015 PRISCILLA [...] PRISCILLA DAO MD Ot C54.8 09/11/2015 PRISCILLA ADO MD Ot 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 [...] J06.9 ACUTE UPPER RESPIRATORY INFECTION, UNSPE 12/01/2015 PRISICLLA DAO MD Ot 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 NEOPLASM OF [...] 182.0 MALIG WENDY CORPUS UTERI 06/24/2016 PRISCILLA ADO MD Ot 786.50 CHEST PAIN NOS 06/24/2016 [...] MALIGNANT NEOPLASM OF OVERLAPPING SITES 06/25/2016 PRISCILLA ADO MD Ot 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 Type Provider Facility Loc./Unit Complaint [id number] 05/09/2013 12:00:00 2013 23:59:59 CLS Outpatient Lance Ulloa MD [facility] [id number] 03/12/2013 08:50:00 2012 23:59:59 CLS Outpatient Lance Ulloa MD [facility] [id number] 07/06/2012 09:59:00 2012 14:49:00 DIS Outpatient Winter GRIER, Christophe Gu [facility] on [address]
[2016-07-30] MEDS ORDERED: IBP200T PO (12:09)
--- NOTE | 2016-07-30 12:11 | Diagnostic Imaging Report ---
INDICATION: Left leg pain and swelling. COMPARISON: None. TECHNIQUE: The left lower extremity deep venous system was interrogated from the common femoral vein through the popliteal vein. These images were assessed for grayscale appearance, color and spectral Doppler blood flow, compression, and augmentation. FINDINGS: There is no evidence of intraluminal filling defect. Normal compression and augmentation is noted throughout. Soft tissues are unremarkable. IMPRESSION: 1. No sonographic evidence of deep venous thrombosis in the left lower extremity. Dictated by: Dictated on workstation # [id number]
[2016-07-30 12:15] VITALS: BP 164/82
== END 2016-07-30 12:19 | disposition home or self-care (01) ==
LOC: ED 10:57
DX: S76.912A Strain of unspecified muscles, fascia and tendons at thigh level, left thigh, initial encounter (principal); X58.XXXA Exposure to other specified factors, initial encounter
CPT/HCPCS: 99282

== ENCOUNTER → 2016-08-02 | Outpatient (CLI) | payer OTHER | LOC: LAB 15:42 | PROVIDERS: ATTEND Internal Medicine Hematology & Oncology | DX: C54.8 Malignant neoplasm of overlapping sites of corpus uteri (principal) | CPT/HCPCS: 82570; 84156 ==

== ENCOUNTER → 2016-08-16 | Outpatient (CLI) | payer OTHER ==
[2016-08-16 10:21] LABS: MEAN CORPUSCULAR HEMOGLOBIN 28.9 PG (26.0-34.0); MEAN CORPUSCULAR HGB CONC 32.4 g/dL (31.0-37.0); MEAN CORPUSCULAR VOLUME 89 FL (80-100); MEAN PLATELET VOLUME 9.2 FL (6.0-9.5); PLATELET COUNT 229 10^3uL (150-450); WHITE BLOOD COUNT 4.62 10^3uL (4.0-11.0)
[2016-08-16 10:37] LABS: BAND NEUTROPHILS % 0 % (0-6); EOSINOPHILS % 0 % (0-4); LYMPHOCYTES # 1.4 #; MONOCYTES # 0.3 #; MONOCYTES % 7 % (3-11); RBC MORPH NORMAL (NORMAL); SEGMENTED NEUTROPHILS % 61 % (51-67); TOTAL CELLS COUNTED 100
[2016-08-16 10:40] LABS: ALBUMIN 3.9 g/dL (3.4-5.0); ANION GAP 13.5 MEQ/L (3-15); MAGNESIUM* 1.6 mg/dL (1.6-2.3); TOTAL PROTEIN 7.4 g/dL (6.4-8.5)
== END ==
LOC: LAB 10:03
PROVIDERS: ATTEND Internal Medicine Hematology & Oncology
DX: C54.8 Malignant neoplasm of overlapping sites of corpus uteri (principal)
CPT/HCPCS: 36415; 80053; 83615; 83735; 84100; 85007; 85027

== ENCOUNTER → 2016-08-17 | Outpatient (CLI) | payer OTHER ==
--- NOTE | 2016-08-17 09:30 | Diagnostic Imaging Report ---
PROCEDURE: CT chest pelvis with and abdomen with and without contrast. TECHNIQUE: Multiple contiguous axial images were obtained through the chest, abdomen and pelvis after uneventful bolus administration of intravenous contrast. Precontrast acquisitions were acquired through the abdomen. INDICATION: Uterine cancer surveillance. COMPARISON: 06/23/2016 and 04/28/2016. CT CHEST FINDINGS: No endoluminal lesion in the trachea or central bronchi. No pulmonary mass or consolidation. Compared to CT chest of 04/28/2016, the 9 mm subpleural nodule along the right hemidiaphragm is unchanged. Previously noted subpleural nodule in the superior segment of the left lower lobe has a more linear configuration and is compatible with focal atelectasis. There are a few scattered ill-defined pulmonary micronodules within the middle lobe and left lower lobe near the hemidiaphragm which are likely stable and are better visualized on this examination due to differences in slice selection between examinations and the tiny size of these micronodules. No definitive new pulmonary nodules. No supraclavicular or axillary lymphadenopathy. Normal thyroid. No mediastinal, hilar or juxtaphrenic lymphadenopathy. No pleural effusion or pneumothorax. The heart is normal in size without pericardial effusion. Calcified hilar and mediastinal lymph nodes are compatible with remote granulomatous infection. Normal caliber thoracic aorta. No concerning focal osseous lesion in the chest. IMPRESSION: 1. Stable CT chest without evidence of disease progression. 2. There are a few scattered bilateral pulmonary micronodules which are likely stable and more conspicuous on this examination due to differences in slice selection and the tiny size of the micronodules. Attention on followup is advised. CT ABDOMEN AND PELVIS FINDINGS: No free intraperitoneal air. Stable trace free pelvic fluid compared to 06/23/2016 exam. The liver, gallbladder and spleen are normal. Pancreas and adrenals are also normal. No bowel obstruction. Sigmoid colon diverticulosis without diverticulitis. Normal caliber abdominal aorta. Compared to 06/23/2016, the scattered retroperitoneal lymphadenopathy has not changed. Two of the larger lymph nodes include a left-sided 1.8 x 0.9 cm lymph node and a right-sided retrocaval 1.2 x 0.9 cm lymph node. There are additional smaller low abdominal retroperitoneal lymph nodes which remain similar in size and number. Bilateral mildly enlarged left inguinal lymph nodes are also unchanged with the largest again measuring approximately 1.5 x 0.9 cm. No new abdominal or pelvic lymphadenopathy. Status post hysterectomy. No concerning focal osseous lesion in the abdomen or pelvis. IMPRESSION: 1. Stable CT abdomen and pelvis compared to 06/23/2016 with a few mildly enlarged retroperitoneal and left inguinal lymphs. No evidence of disease progression in the abdomen or pelvis. Dictated by: Dictated on workstation # [id number]
== END ==
LOC: RAD 07:41
PROVIDERS: ATTEND Internal Medicine Hematology & Oncology
DX: C54.8 Malignant neoplasm of overlapping sites of corpus uteri (principal)
CPT/HCPCS: 71260; 74178; Q9967

== ENCOUNTER → 2016-08-30 | Outpatient (CLI) | payer OTHER | LOC: LAB 09:22 | PROVIDERS: ATTEND Internal Medicine Hematology & Oncology | DX: C54.8 Malignant neoplasm of overlapping sites of corpus uteri (principal) | CPT/HCPCS: 82570; 84156 ==

== ENCOUNTER 2016-09-13 18:42 | Emergency (ER) | payer OTHER ==
[~2016-09-13] VITALS: Ht 160 cm; Wt 74.0 kg
--- OUTSIDE RECORDS SUMMARY | 2016-09-13 18:50 | XMS REPORT | Continuity of Care Document ---
Author Author [facility] Organization [facility] Address Unknown Phone Unavailable Allergies Active Description Code Type Severity Reaction Onset Reported/Identified Relationship to Patient Clinical Status Yes No Allergy Information Availab Drug Allergy 07/06/2012 Yes No Allergy Information Availab Drug Allergy N/A N/A 07/06/2012 Yes TAPE TAPE Unknown N/A 04/18/2014 Yes adhesive [id number] Drug Allergy Unknown N/A 07/30/2016 Medications Problems Date Dx Coded Attending Type [...] PRISCILLA DAO MD Ot 785.6 03/18/2014 PRISCILLA DOA MD Ot 179 03/18/2014 PRISCILLA DAO MD [...] 11/20/2014 PRISCILLA DAO MD Ot 182.0 01/19/2015 PRICSILLA DAO MD Ot 182.0 MALIG WENDY CORPUS [...] 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 11/19/2015 RPISCILLA DAO MD Ot 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 NEOPLASM OF [...] 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 07/08/2016 PAGE MD, PRISCILLA J Ot 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 07/29/2016 PRISCILLA DAO MD Ot 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 07/30/2016 Ot V10.3 HX OF BREAST MALIGNANCY 07/30/2016 Ot V10.42 HX-UTERUS MALIGNANCY NEC 07/30/2016 Ot 182.0 MALIG WENDY CORPUS UTERI 07/30/2016 Ot 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.0 MALIG WENDY CORPUS UTERI 07/30/2016 Ot 182.0 MALIG WENDY CORPUS UTERI 07/30/2016 Ot 788.1 DYSURIA 07/30/2016 Ot 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.0 MALIG WENDY CORPUS UTERI 07/30/2016 Ot 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.0 MALIG WENDY CORPUS UTERI 07/30/2016 Ot 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.0 MALIG WENDY CORPUS UTERI 07/30/2016 Ot 182.0 MALIG WENDY CORPUS UTERI 07/30/2016 Ot 182.0 MALIG WENDY CORPUS UTERI 07/30/2016 PRISCILLA DAO MD Ot 786.50 CHEST PAIN NOS 07/30/2016 MARTIN LARA, LAKSHMI K Ot 179 MALIG NEOPL UTERUS NOS 07/30/2016 PRISCILLA DAO MD Ot 182.0 MALIG WENDY CORPUS UTERI 07/30/2016 PRISCILLA DAO MD Ot 785.6 ENLARGEMENT LYMPH NODES 07/30/2016 PRISCILLA DAO MD Ot 179 MALIG NEOPL UTERUS NOS 07/30/2016 PRISCILLA DAO MD Ot 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.0 MALIG WENDY CORPUS UTERI 07/30/2016 PRISCILLA DAO MD Ot 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.0 MALIG WENDY CORPUS UTERI 07/30/2016 PRISCILLA DAO MD Ot 182.0 MALIG WENDY CORPUS UTERI 07/30/2016 PRISCILLA DAO MD Ot 182.0 MALIG WENDY CORPUS UTERI 07/30/2016 PRISCILLA DAO MD Ot 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.0 MALIG WENDY CORPUS UTERI 07/30/2016 PRISCILLA DAO MD Ot 182.0 MALIG WENDY CORPUS UTERI 07/30/2016 PRISCILLA DAO MD Ot 593.9 RENAL URETERAL DIS NOS 07/30/2016 PRISCILLA DAO MD Ot 785.6 ENLARGEMENT LYMPH NODES 07/30/2016 PRISCILLA DAO MD Ot 182.0 MALIG WENDY CORPUS UTERI 07/30/2016 PRISCILLA DAO MD Ot 179 MALIG NEOPL UTERUS NOS 07/30/2016 PRISCILLA DAO MD Ot 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 07/30/2016 PRISCILLA DAO MD Ot 182.0 07/30/2016 Ot C55 MALIGNANT NEOPLASM OF UTERUS, PART UNSPE 07/30/2016 PRISCILLA DAO MD Ot R06.09 OTHER FORMS OF DYSPNEA 07/30/2016 PRISCILLA DAO MD, Ot C55 MALIGNANT NEOPLASM OF UTERUS, PART UNSPE 07/30/2016 PRISCILLA DAO MD Ot R06.09 OTHER FORMS OF DYSPNEA 07/30/2016 PRISCILLA DAO MD Ot C55 MALIGNANT NEOPLASM OF UTERUS, PART UNSPE 07/30/2016 PRISCILLA DAO MD Ot R06.09 OTHER FORMS OF DYSPNEA 07/30/2016 PRISCILLA DAO MD Ot 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 07/30/2016 PRISCILLA DAO MD Ot 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 07/30/2016 PRISCILLA DAO MD Ot 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 07/30/2016 RPISCILLA DAO MD Ot 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 07/30/2016 PRISCILLA DAO MD Ot 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 07/30/2016 PRISCILLA DAO MD Ot J06.9 ACUTE UPPER RESPIRATORY INFECTION, UNSPE 07/30/2016 PRISCILLA DAO MD Ot 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 07/30/2016 PRISCILLA DAO MD Ot 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 07/30/2016 PRISCILLA DAO MD Ot 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 07/30/2016 PRISCILLA DAO MD Ot 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 07/30/2016 PRISCILLA DAO MD Ot J06.9 ACUTE UPPER RESPIRATORY INFECTION, UNSPE 07/30/2016 PRISCILLA DAO MD Ot 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 07/30/2016 PRISCILLA DAO MD Ot 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 07/30/2016 PRISCILLA DAO MD Ot 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 07/30/2016 KELLI GRIER, REY Justin Ot R30.0 DYSURIA 07/30/2016 PRISCILLA DAO MD Ot 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 07/30/2016 PRISCILLA DAO MD Ot 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 07/30/2016 PRISCILLA DAO MD Ot 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 07/30/2016 PRISCILLA DAO MD Ot 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 07/30/2016 PRISCILLA DAO MD, Ot 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 07/30/2016 PRISCILLA DAO MD Ot 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 07/30/2016 PRISCILLA DAO MD Ot 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 07/30/2016 PRISCILLA DAO MD Ot 182.0 07/30/2016 KELLEE SALAZAR MD Ot M79.89 OTHER SPECIFIED SOFT TISSUE DISORDERS 07/30/2016 KELLEE SALAZAR MD Ot S76.912A STRAIN OF UNSP MUSC/FASC/TEND AT THI LEV 07/30/2016 KELLEE SALAZAR MD Ot X58.XXXA EXPOSURE TO OTHER SPECIFIED FACTORS, INI 08/02/2016 PRISCILLA DAO MD Ot 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 08/04/2016 KELLEE SALAZAR MD Ot M79.89 OTHER SPECIFIED SOFT TISSUE DISORDERS 08/04/2016 KELLEE SALAZAR MD Ot S76.912A STRAIN OF UNSP MUSC/FASC/TEND AT THI LEV 08/04/2016 KELLEE SALAZAR MD Ot X58.XXXA EXPOSURE TO OTHER SPECIFIED FACTORS, INI 08/04/2016 PRISCILLA DAO MD Ot 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 08/12/2016 PRISCILLA DAO MD Ot 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 08/13/2016 PRISCILLA DAO MD Ot 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 08/17/2016 Ot V10.3 HX OF BREAST MALIGNANCY 08/17/2016 Ot V10.42 HX-UTERUS MALIGNANCY NEC 08/17/2016 Ot 182.0 MALIG WENDY CORPUS UTERI 08/17/2016 Ot 182.0 MALIG WENDY CORPUS UTERI 08/17/2016 Ot 182.0 MALIG WENDY CORPUS UTERI 08/17/2016 Ot 788.1 DYSURIA 08/17/2016 Ot 182.0 MALIG WENDY CORPUS UTERI 08/17/2016 Ot 182.0 MALIG WENDY CORPUS UTERI 08/17/2016 Ot 182.0 MALIG WENDY CORPUS UTERI 08/17/2016 Ot 182.0 MALIG WENDY CORPUS UTERI 08/17/2016 Ot 182.0 MALIG WENDY CORPUS UTERI 08/17/2016 PRISCILLA DAO MD Ot 786.50 CHEST PAIN NOS 08/17/2016 LAKSHMI PINO K Ot 179 MALIG NEOPL UTERUS NOS 08/17/2016 PRISCILLA DAO MD Ot 182.0 MALIG WENDY CORPUS UTERI 08/17/2016 PRISCILLA DAO MD Ot 785.6 ENLARGEMENT LYMPH NODES 08/17/2016 PRISCILLA DAO MD Ot 179 MALIG NEOPL UTERUS NOS 08/17/2016 PRISCILLA DAO MD Ot 182.0 MALIG WENDY CORPUS UTERI 08/17/2016 PRISCILLA DAO MD Ot 182.0 MALIG WENDY CORPUS UTERI 08/17/2016 PRISCILLA DAO MD Ot 182.0 MALIG WENDY CORPUS UTERI 08/17/2016 PRISCILLA DAO MD Ot 182.0 MALIG WENDY CORPUS UTERI 08/17/2016 PRISCILLA DAO MD Ot 182.0 MALIG WENDY CORPUS UTERI 08/17/2016 PRISCILLA DAO MD Ot 182.0 MALIG WENDY CORPUS UTERI 08/17/2016 PRISCILLA DAO MD Ot 593.9 RENAL URETERAL DIS NOS 08/17/2016 PRISCILLA DAO MD Ot 785.6 ENLARGEMENT LYMPH NODES 08/17/2016 PRISCILLA DAO MD Ot 182.0 MALIG WENDY CORPUS UTERI 08/17/2016 PRISCILLA DAO MD Ot 179 MALIG NEOPL UTERUS NOS 08/17/2016 PRISCILLA DAO MD Ot 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 08/17/2016 PRISCILLA DAO MD Ot 182.0 08/17/2016 Ot C55 MALIGNANT NEOPLASM OF UTERUS, PART UNSPE 08/17/2016 PRISCILLA DAO MD Ot R06.09 OTHER FORMS OF DYSPNEA 08/17/2016 PRISCILLA DAO MD, Ot C55 MALIGNANT NEOPLASM OF UTERUS, PART UNSPE 08/17/2016 PRISCILLA DAO MD Ot R06.09 OTHER FORMS OF DYSPNEA 08/17/2016 PRISCILLA DAO MD, Ot C55 MALIGNANT NEOPLASM OF UTERUS, PART UNSPE 08/17/2016 PRISCILLA DAO MD Ot R06.09 OTHER FORMS OF DYSPNEA 08/17/2016 PRISCILLA DAO MD Ot 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 08/17/2016 PRISCILLA DAO MD Ot 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 08/17/2016 PRISCILLA DAO MD Ot 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 08/17/2016 PRISCILLA DAO MD Ot 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 08/17/2016 PRISCILLA DAO MD Ot 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 08/17/2016 PRISCILLA DAO MD Ot J06.9 ACUTE UPPER RESPIRATORY INFECTION, UNSPE 08/17/2016 PRISCILLA DAO MD Ot 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 08/17/2016 PRISCILLA DAO MD Ot 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 08/17/2016 PRISCILLA DAO MD Ot 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 08/17/2016 PRISCILLA DAO MD Ot 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 08/17/2016 PRISCILLA DAO MD Ot J06.9 ACUTE UPPER RESPIRATORY INFECTION, UNSPE 08/17/2016 PRISCILLA DAO MD Ot 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 08/17/2016 PRISCILLA DAO MD Ot 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 08/17/2016 PRISCILLA DAO MD Ot 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 08/17/2016 KELLI GRIER, REY Justin Ot R30.0 DYSURIA 08/17/2016 PRISCILLA DAO MD Ot 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 08/17/2016 PRISCILLA DAO MD Ot 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 08/17/2016 PRISCILLA DAO MD Ot 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 08/17/2016 PRISCILLA DAO MD Ot 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 08/17/2016 PRISCILLA DAO MD Ot 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 08/17/2016 PRISCILLA DAO MD Ot 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 08/17/2016 PRISCILLA DAO MD Ot 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 08/17/2016 PRISCILLA DAO MD Ot 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 08/21/2016 PRISCILLA DAO MD Ot 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 08/23/2016 PRISCILLA DAO MD Ot 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 09/01/2016 PRISCILLA DAO MD Ot 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 Procedures Code Description [place] [id number] LAPAROSCOPY, LYMPHADENECTOMY Christophe Max MD 07/06/2012 04997 TLH W/T/O 250 G OR LESS Christophe [...] - 07/27/16 15:58 Sodium measurement 474 313-618 Urine protein/creatinine ratio - 08/02/16 15:51 Urine protein/creatinine ratio 0.00- 0.14 CBC AND MANUAL DIFF - 08/16/16 10:10 Blood automated leukocyte count 4.62 4.0 -11.0 Erythrocytes 4.53 4.00-5.00 12.0-16.0;g/dL 13.1 12.0-15.5 Hematocrit 40.40 35.00-45.00 Automated erythrocyte mean corpuscular volume 89 80-100 Mean corpuscular hemoglobin (MCH) determination 28.9 26.0-34.0 Automated erythrocyte mean corpuscular hemoglobin concentration measurement ( mass/volume) 32.4 31.0-37.0 Erythrocyte distribution width 14.7 11.8 -15.6 Automated blood platelet count 229 150- 450 Automated blood platelet mean volume measurement 9.2 6.0-9.5 Total cell count 100 Blood segmented neutrophils percentage 61 51-67 Blood band neutrophil count as percentage of total leukocytes 0 0-6 LYMPHOCYTES % 31 20-46 Automated monocyte percentage 7 3-11 Eosinophil count auto 0 0-4 Basophils 1 0-2 NEUTROPHILS(SEG) 2.8 NEUTROPHILS # BANDS 0.0 Blood lymphocytes manual count (number/volume) 1.4 Automated blood monocyte count 0.3 Blood absolute eosinophil count 0.0 Basophils 0.0 Erythrocyte morphology assessment NORMAL NORMAL Comprehensive metabolic panel - 08/16/16 10:10 Sodium measurement 88 70-110 CARBON DIOXIDE 28 22-29 Serum or plasma anion gap 13.5 3-15 BLOOD UREA NITROGEN 20 7-18 CREATININE SERUM 1.07 0.6-1.2 Brucella species antibody panel (IgG, IgM) 19 10-20 Estimated glomerular filtration rate (GFR) 62.9 Estimated glomerular filtration rate (GFR) non- 52.0 OSMOLALITY,CALCULATED 279 280-300 CALCIUM 9.4 8.8-10.8 Calculated ionized calcium measurement 4.0 3.8-4.6 BILIRUBIN,TOTAL 0.8 0.1-1.0 Serum or plasma alkaline phosphatase measurement 119 38-126 ASPARTATE AMINO TRANSFERASE 22 15-37 ALANINE AMINOTRANSFERASE 37 30-65 Serum or plasma total protein measurement 7.4 6.4-8.5 Serum or plasma albumin measurement 3.9 3.4-5.0 Serum or plasma albumin/globulin mass ratio 1.114 1.1-1.8 Phosphorus measurement - 08/16/16 10:10 Phosphorus measurement 3.4 2.4-4.9 Magnesium measurement - 08/16/16 10:10 Magnesium measurement 1.6 1.6-2.3 Lactate dehydrogenase (LDH) measurement - 08/16/16 10:10 Sodium measurement 421 313-618 Urine protein/creatinine ratio - 08/30/16 09:26 Urine protein/creatinine ratio 0.00- 0.14 Encounters ACCT No. Visit Date/Time Discharge Status Pt. Type Provider Facility Loc./Unit Complaint [id number] 05/09/2013 12:00:00 2013 23:59:59 CLS Outpatient Lance Ulloa MD [facility] [id number] 03/12/2013 08:50:00 2012 23:59:59 CLS Outpatient Lance Ulloa MD [facility] [id number] 07/06/2012 09:59:00 2012 14:49:00 DIS Outpatient Christophe Max MD [facility] on [address]
--- OUTSIDE RECORDS SUMMARY | 2016-09-13 18:52 | XMS REPORT | Continuity of Care Document ---
Author Author [facility] Organization [facility] Address Unknown Phone Unavailable Allergies Active Description Code Type Severity Reaction Onset Reported/Identified Relationship to Patient Clinical Status Yes No Allergy Information Availab Drug Allergy 07/06/2012 Yes No Allergy Information Availab Drug Allergy N/A N/A 07/06/2012 Yes TAPE TAPE Unknown N/A 04/18/2014 Yes adhesive [id number] Drug Allergy Unknown N/A 07/30/2016 Medications Problems [...] PRISCILLA DAO MD Ot 179 04/16/2014 PRISCILLA DOA MD Ot 182.0 04/16/2014 PRISCILLA DAO MD [...] 05/08/2015 PRISCILLA DAO MD Ot C55 05/08/2015 FELIBETRO GRIER, PRISCILLA J Ot R06.09 05/08/2015 FELIBERTO [...] Ot 179 MALIG NEOPL UTERUS NOS 12/01/2015 PRICSILLA DAO MD Ot 182.0 MALIG WENDY [...] MALIGNANT NEOPLASM OF OVERLAPPING SITES 06/24/2016 PRISCILLA ADO MD Ot J06.9 ACUTE UPPER RESPIRATORY INFECTION, [...] WENDY CORPUS UTERI 08/17/2016 Ot 182.0 MALIG WNEDY CORPUS UTERI 08/17/2016 PRISCILLA DAO MD Ot [...] Procedures Code Description [place] [id number] LAPAROSCOPY, LYMPHADENECTOMY Christophe Max MD 07/06/2012 76152 TLH W/T/O 250 G OR LESS Christophe [...] Status Pt. Type Provider Facility Loc./Unit Complaint [id number] 05/09/2013 12:00:00 2013 23:59:59 CLS Outpatient Lance Ulloa MD [facility] [id number] 03/12/2013 08:50:00 2012 23:59:59 CLS Outpatient Lance Ulloa MD [facility] [id number] 07/06/2012 09:59:00 2012 14:49:00 DIS Outpatient Christophe Max MD [facility] on [address]
[2016-09-13 18:57] VITALS: BP 155/71
[2016-09-13] MEDS ORDERED: TRM50T PO (20:11)
[2016-09-13] MEDS ORDERED: ED- TRAMADOL 50 MG (ULTRAM) 6 TABLETS/BTL PO ONE (20:15)
== END 2016-09-13 20:41 | disposition home or self-care (01) ==
LOC: ED 18:43
DX: I83.891 Varicose veins of right lower extremity with other complications (principal); M79.661 Pain in right lower leg
CPT/HCPCS: 99282; 99283

== ENCOUNTER → 2016-09-15 | Outpatient (CLI) | payer OTHER ==
[~2016-09-15] MED LIST changes: +TRM50T PO
--- NOTE | 2016-09-15 14:43 | Diagnostic Imaging Report ---
Technique: Grayscale, pulsed and color Doppler imaging of the right lower extremity. Indication: Right leg pain. Findings: The right common femoral, femoral and popliteal veins are patent without evidence of DVT. Visualized proximal aspects of the greater saphenous, deep femoral, posterior tibial and anterior tibial veins are also patent. All of the evaluated deep venous structures demonstrate normal compressibility and waveform augmentation where applicable. Impression: No right lower extremity deep venous thrombosis (DVT). Dictated by: Dictated on workstation # [id number]
== END ==
LOC: RAD 13:31
PROVIDERS: ATTEND Internal Medicine
DX: M79.604 Pain in right leg (principal)